=== PATIENT | female | born 1945 | race Caucasian/White ===

== ENCOUNTER → 2018-05-14 13:45 | Outpatient (CLI) | payer MEDICARE, SELFPAY | PROVIDERS: Family Provider Family Medicine; PCP Family Medicine; Visit Provider Family Medicine | DX: M85.852 Other specified disorders of bone density and structure, left thigh (principal); Z78.0 Asymptomatic menopausal state; E07.9 Disorder of thyroid, unspecified | CPT/HCPCS: 77080 ==

== ENCOUNTER → 2018-06-25 10:35 | Outpatient (CLI) | payer MEDICARE, SELFPAY ==
--- NOTE | 2018-06-25 | DI.MRI.S_ITS ---
PROCEDURE: MR HEAD/BRAIN WO CON INDICATIONS: HISTORY OF BRAIN TUMOR TECHNIQUE: Non-contrast axial T1 spin echo, axial T2 fast spin echo, sagittal and axial FLAIR, coronal T2 fast spin echo, axial gradient echo, axial diffusion and ADC through the brain. COMPARISON: [facility], MR, BRAIN W&WO CONTRAST, 11/21/2014, 10:02. FINDINGS: Image quality: Excellent. CSF spaces: Ventricles appear symmetric in size and shape. Basal cisterns are patent. No extra-axial fluid collections. Brain: There is a cystic cavity in the left temporal tip, measuring 3.7 x 3.0 cm demonstrating internal septa. There is mild T2/FLAIR hyperintensity in the left temporal lobe and frontal lobe, likely secondary to postsurgical changes. Compared to the last exam on 11/21/2014, there is no significant change. The finding is compatible with postsurgical change. No intracranial bleeds or mass effects. There is mild cerebral volume loss for age. There are foci of T2 hyperintensity in the periventricular and deep white matter, most likely secondary to chronic small vessel ischemic changes. Brainstem appears normal. Diffusion-weighted images show no acute ischemic insults. No chronic ischemic insults. Normal intravascular flow voids are present. Skull and face: Left frontotemporal craniotomy. Calvarial bone marrow is normal in signal. Orbits are normal. Sinuses: Sinuses and mastoids are clear. IMPRESSION: 1. Postsurgical changes in the left temporal and frontal lobe with cystic cavity in the left temporal tip, unchanged in size and appearance. In this patient with history of brain tumor and surgical resection, contrast enhanced images are recommended (this is ordered as a non-contrast exam). 2. Mild cerebral volume loss and chronic microvascular ischemic changes. 3. Left frontotemporal craniotomy. Dictated by: Jaren Salazar M.D. on 06/25/2018 at 11:36 Transcribed by: RC on 06/25/2018 at 11:42 Approved by: Jaren Salazar M.D. on 06/25/2018 at 12:27
== END ==
PROVIDERS: Family Provider Family Medicine; PCP Family Medicine; Visit Provider Family Medicine
DX: Z86.011 Personal history of benign neoplasm of the brain (principal)
CPT/HCPCS: 70551

== ENCOUNTER → 2018-08-04 11:46 | Outpatient (CLI) | payer MEDICARE, SELFPAY ==
--- NOTE | 2018-08-04 | DI.MG.S_ITS ---
BILATERAL DIGITAL SCREENING MAMMOGRAM 3D/2D WITH CAD: 08/04/2018 CLINICAL: Routine screening. Baseline by default. No prior exams were available for comparison. There are scattered fibroglandular elements in both breasts. Current study was also evaluated with a Computer Aided Detection (CAD) system. There is 1.4 cm oval equal density asymmetry with an indistinct and circumscribed margin in the left breast at 11 o'clock anterior depth. No other significant masses, calcifications, or other findings are seen in either breast. IMPRESSION: INCOMPLETE: NEEDS ADDITIONAL IMAGING EVALUATION The 1.4 cm oval equal density asymmetry in the left breast is indeterminate. Mediolateral and spot compression views as well as additional views with possible ultrasound are recommended. This exam was interpreted at Station ID: [id number]. NOTE: For mammograms, a report in lay terms will be sent to the patient. Approximately 15% of breast malignancies will not be visualized mammographically. In the management of a palpable breast mass, a negative mammogram must not discourage biopsy of a clinically suspicious lesion. Electronically Signed By: Jose peace/issac:08/04/2018 13:22:38 letter sent: Additional Imaging Needed ACR BI-RADS Category 0: Incomplete [id number]
== END ==
PROVIDERS: Family Provider Family Medicine; PCP Family Medicine; Visit Provider Family Medicine
DX: Z12.31 Encounter for screening mammogram for malignant neoplasm of breast (principal)
CPT/HCPCS: 77063; 77067

== ENCOUNTER → 2018-08-31 12:26 | Outpatient (CLI) | payer MEDICARE, SELFPAY ==
--- NOTE | 2018-08-31 | DI.MG.S_ITS ---
UNILATERAL LEFT DIGITAL DIAGNOSTIC MAMMOGRAM 3D/2D WITH ADDITIONAL VIEWS: 08/31/2018 CLINICAL: Additional evaluation requested from prior study. Comparison is made [facility] There are scattered fibroglandular elements in left breast. The oval equal density asymmetry with an indistinct and circumscribed margin in the left breast at 11 o'clock anterior depth is less prominent on additional views. No other significant masses or calcifications are seen in the breast. IMPRESSION: INCOMPLETE: NEEDS ADDITIONAL IMAGING EVALUATION The oval equal density asymmetry in the left breast is indeterminate. A targeted ultrasound of the left breast is recommended and will be performed immediately following this exam. This exam was interpreted at Station ID: [id number]. NOTE: For mammograms, a report in lay terms will be sent to the patient. Approximately 15% of breast malignancies will not be visualized mammographically. In the management of a palpable breast mass, a negative mammogram must not discourage biopsy of a clinically suspicious lesion. Electronically Signed By: Licha Lvoe M.D. lk/:08/31/2018 13:26:31 ACR BI-RADS Category 0: Incomplete [id number]
--- NOTE | 2018-08-31 | DI.US.S_ITS ---
ULTRASOUND OF LEFT BREAST: 08/31/2018 CLINICAL: Patient returns today to evaluate a density in the left breast. Comparison is made to exams dated: 08/31/2018 mammogram and 08/04/2018 mammogram - [facility]. Real-time ultrasound of the left breast was performed on the areas of interest. Monge scale images of the real-time examination were reviewed. There is a benign cluster of mildly dilated ducts in the left breast at 10 o'clock anterior depth. This correlates with mammography findings. IMPRESSION: BENIGN There is no sonographic evidence of malignancy. The cluster of dilated ducts in the left breast is benign. A 1 year screening mammogram is recommended. This exam was interpreted at Station ID: [id number]. Electronically Signed By: Licha south/:08/31/2018 14:35:37 letter sent: Normal Exam Ultrasound BI-RADS: 2 Benign
== END ==
PROVIDERS: PCP Family Medicine; Visit Provider Family Medicine
DX: R92.8 Other abnormal and inconclusive findings on diagnostic imaging of breast (principal)
CPT/HCPCS: 76642; 77065; G0279